=== PATIENT | male | born 1960 | race Two or more races ===

== ENCOUNTER 2018-12-14 22:09 | Emergency (ER) | payer OTHER ==
[~2018-12-14] VITALS: Ht 170.2 cm; Wt 77.1 kg
[2018-12-15] MEDS ORDERED: ZYNCOF 20-400120 ML PO (01:47)
[2018-12-15] MEDS ORDERED: ALBUTEROL2.5 MG/3 M IH (01:47)
[2018-12-15] MEDS ORDERED: LEVAQUIN750 MG PO (01:48)
== END 2018-12-15 01:58 | disposition home or self-care (01) ==
LOC: ER 22:09
DX: J45.998 Other asthma (principal)